=== PATIENT | male | born 1975 | race Caucasian/White ===

== ENCOUNTER 2022-03-07 16:29 | Emergency (ER) | payer OTHER ==
[~2022-03-07] VITALS: Ht 185 cm; Wt 107.0 kg
--- NOTE | 2022-03-07 16:55 | ED Upper Extremity ---
General Chief Complaint: Upper Extremity Stated Complaint: L HAND MIDDLE FINGER INJ Nursing Triage Note: pt came from work with cc of lt hand third digit getting caught in a cable with a glove on. bleeding controlled on arrival with skin tore away from the nail. Source: patient Exam Limitations: no limitations (CHANTAL PIÑA APRN) History of Present Illness Date Seen by Provider: March 07, 2022 Time Seen by Provider: 16:52 Initial Comments Crush injury of the left fingertip from a cable while at work just prior to arrival. Tetanus is not up-to-date. Onset: just prior to arrival Severity: moderate Pain/Injury Location: left 3rd finger Method of Injury: direct blow Modifying Factors: Worse With Movement (CHANTAL PIÑA APRN) Allergies and Home Medications Allergies Coded Allergies: No Known Drug Allergies (Unverified , 03/07/22) Patient Home Medication List Home Medication List Reviewed: Yes (CHANTAL PIÑA APRN) Amoxicillin/Potassium Clav (Amox Tr-K Clv 875-125 mg Tab) 875 Mg-125 Mg Tablet, 1 EACH PO BID Prescribed by: CHANTAL PIÑA on 03/07/22 1750 Review of Systems Constitutional: see HPI EENTM: see HPI Respiratory: no symptoms reported Cardiovascular: no symptoms reported Genitourinary: no symptoms reported Musculoskeletal: no symptoms reported Skin: no symptoms reported Psychiatric/Neurological: No Symptoms Reported (CHANTAL PIÑA APRN) Past Wpwmbao-Pwelat-Ndvxny Hx Patient Social History Tobacco Use?: No Substance use?: No Alcohol Use?: No (CHANTAL PIÑA APRN) Past Medical History Surgery/Hospitalization HX: gallbladder (CHANTAL PIÑA APRN) Physical Exam Vital Signs Vital Signs - First Documented 03/07/22 16:35 Temp 36.6 Pulse 90 Resp 20 B/P (MAP) 164/98 (120) Pulse Ox 95 O2 Delivery Room Air (YESENIA MEYERS MD) Vital Signs Capillary Refill : Less Than 3 Seconds (CHANTAL PIÑA APRN) Height, Weight, BMI Height: '" Weight: lbs. oz. kg; 31.00 BMI Method: General Appearance: WD/WN, no apparent distress HEENT: PERRL/EOMI, normal ENT inspection Neck: non-tender, full range of motion Respiratory: no respiratory distress, no accessory muscle use Shoulder: normal inspection, non-tender Elbow/Forearm: normal inspection, non-tender Wrist: Yes normal inspection, Yes non-tender Hand: Left, laceration (There is a complex stellate laceration to the pad of the left middle fingertip. Dorsally there is a very small subungual hematoma but the nail is intact. It is as though the pad has been pulled off anteriorly from the phalanx. This tissue has delayed capillary refill. Did a digital block using 5 mL of 1% lidocaine without epinephrine then irrigated thoroughly then loosely closed the laceration with sutures covered with antibiotic ointment then tube gauze. I will give him some antibiotic prophylaxis and pain control at home and have him follow-up with surgery.) Neurologic/Tendon: normal sensation, normal motor functions, normal tendon functions Neurologic/Psychiatric: alert, normal mood/affect, oriented x 3 Skin: normal color, warm/dry (CHANTAL PIÑA APRN) Procedures/Interventions Wound Location: Upper Extremities Wound Length (cm): 2 Wound's Depth, Shape: irregular, contused tissue, bone, sub Q Anesthesia: 1% Lidocaine Volume Anesthetic (ccs): 10 Suture: Vicryl Suture Size: 3-0 Number of Sutures: 13 Layer Closure?: 1 Number Deep Layer Sutures: 0 (CHANTAL PIÑA APRN) Progress/Results/Core Measures Results/Orders Medications Given in ED Current Medications Medications Dose Ordered Sig/Fiona Route Start Time Stop Time Status Last Admin Dose Admin Acetaminophen/ Hydrocodone Bitart 1 ea ONCE ONCE PO 03/07/22 17:00 03/07/22 17:01 DC 03/07/22 17:54 1 EA Diphtheria/ Tetanus/Acell Pertussis 0.5 ml ONCE ONCE IM 03/07/22 17:00 03/07/22 17:01 DC 03/07/22 17:55 0.5 ML (YESENIA MEYERS MD) Vital Signs/I&O 03/07/22 03/07/22 17:54 18:05 Temp 36.6 36.6 Pulse 88 Resp 20 B/P (MAP) 158/93 Pulse Ox 95 O2 Delivery Room Air (YESENIA MEYERS MD) Blood Pressure Mean: 120 Departure Communication (Admissions) NAME: STEFANY BEE [facility] REC#: [id number] PT STATUS: REG ER : 1975 PHYSICIAN: CHATNAL PIÑA APRN ADMIT DATE: 03/07/22/ER Signed Date of Exam:03/07/22 HAND, LEFT, 3 VIEWS INDICATION: Left hand injury, finger injury. FINDINGS: Three views of the left hand demonstrate slightly displaced tuft fracture of the third phalanx. Joint spaces are normal. No foreign body. IMPRESSION: Tuft fracture of the third digit. Dictated by: Dictated on workstation # [id number] Dict: 03/07/22 1705 Trans: 03/07/22 1737 [id number] Interpreted by: TALYA LOZANO Electronically signed by: TALYA LOZANO 03/07/22 1738 1740-sutured with 13 sutures, there is some duskiness to the pad of the finger tip. I will have him follow-up with surgery. He is going to return here in 48 to 72 hours for dressing change. He also will follow-up with hand surgery or orthopedics. We used Vicryl sutures so these do not have to be removed. (CHANTAL PIÑA APRN) Impression Primary Impression: Complex fingertip laceration Disposition: 01 HOME, SELF-CARE Condition: Stable Departure-Patient Inst. Decision time for Depature: 16:55 (CHANTAL PIÑA APRN) Referrals: LISSETT ELY DO SHARRI CLANCY DO MARILU MARTINEZ DO HELGA,LOCAL PHYSICIAN (PCP) Primary Care Physician BELIA YEAGER MD Patient Instructions: Laceration Repair With Stitches (DC) Add. Discharge Instructions: 1. Return here to ER within 48 to 72 hours at a time of your convenience. Tell them you are just here for a dressing change. Call a surgeon of your choosing tomorrow. A list of local surgeons and orthopedist have been listed for you call 1 tomorrow to make an appointment to be seen within the next 1 to 2 weeks. Keep this dressing clean and dry at all times. Keep either a condom over this or the finger from a glove when you shower to keep it dry. Pain medication as directed. No use of left hand. Antibiotics as directed. All discharge instructions reviewed with patient and/or family. Voiced understanding. Scripts Amoxicillin/Potassium Clav (Amox Tr-K Clv 875-125 mg Tab) 875 Mg-125 Mg Tablet 1 EACH PO BID, #14 TAB Prov: CHANTAL PIÑA APRN 03/07/22 PHYSICIAN ATTESTATION NOTE: I was present in the ER while GEAR REPAIRER / PA saw the patient, but I was not involved in the care, exam, or management of the patient. (YESENIA MEYERS MD) CHANTAL PIÑA APRN March 07, 2022 16:55 YESENIA MEYERS MD March 08, 2022 04:39
[2022-03-07] MEDS ORDERED: HYDROcodone/APAP 5 MG/325 MG (LORTAB) TAB PO ONE (17:00)
[2022-03-07] MEDS ORDERED: CEPHALEXIN 250 MG (KEFLEX) CAP PO SCH (17:00)
[2022-03-07] MEDS ORDERED: TETANUS,DIPTH,PERTUSS P/F (BOOSTRIX) 0.5 ML VIAL IM ONE (17:00)
--- NOTE | 2022-03-07 17:09 | Diagnostic Imaging Report ---
INDICATION: Left hand injury, finger injury. FINDINGS: Three views of the left hand demonstrate slightly displaced tuft fracture of the third phalanx. Joint spaces are normal. No foreign body. IMPRESSION: Tuft fracture of the third digit. Dictated by: Dictated on workstation # [id number]
[2022-03-07] MEDS ORDERED: AMOX1TAB12 PO (17:50)
[2022-03-07 18:05] VITALS: BP 158/93
== END 2022-03-07 18:05 | disposition home or self-care (01) ==
LOC: ER 16:32
DX: S62.603A Fracture of unspecified phalanx of left middle finger, initial encounter for closed fracture (principal); S61.213A Laceration without foreign body of left middle finger without damage to nail, initial encounter; W23.0XXA Caught, crushed, jammed, or pinched between moving objects, initial encounter; Y92.59 Other trade areas as the place of occurrence of the external cause; Y99.0 Civilian activity done for income or pay
CPT/HCPCS: 12013; 64450; 73130; 90715

== ENCOUNTER 2022-03-08 17:47 | Emergency (ER) | payer OTHER ==
[~2022-03-08] VITALS: Ht 185 cm; Wt 107.0 kg
[~2022-03-08 17:47] MED LIST: AMOX1TAB12 PO
[2022-03-08 18:15] VITALS: BP 150/112
== END 2022-03-08 18:20 | disposition home or self-care (01) ==
LOC: EDUNIT# 17:47 → ER 17:51
DX: Z48.00 Encounter for change or removal of nonsurgical wound dressing (principal)
CPT/HCPCS: 99281

== ENCOUNTER 2022-03-09 16:35 | Emergency (ER) | payer OTHER ==
[~2022-03-09] VITALS: Ht 182.9 cm; Wt 106.6 kg
[2022-03-09 16:45] VITALS: BP 144/94
--- NOTE | 2022-03-09 17:46 | ED Suture Removal/Wound Check ---
Suture/Wound Re-check Suture Removal/Wound Recheck : Suture Removal/Wound Recheck: Dry/sterile dressing-appl Progress Dressing removed. He has significant swelling to his left 3rd finger, has white discoloration around medial and lateral nail borders. The tip of the finger is somewhat dusky. He does have good cap refill at the most distal tip. Delayed cap refill on volar finger pad surface. Sutures are intact. No purulent drainage. Cleansed area with Chlorhexadine wash and saline. Tolerated well. Applied dry guaze dressing with Kerlix. States his spouse had covered his finger in triple antibiotic ointment and covered to help prevent infection. Discussed not using triple antibiotic ointment as this can delay wound healing. Reviewed cleansing finger with soap and water, patting dry, and avoiding soaking finger or allowing wet dressing to stay in place. He is to apply dry dressings and may keep open to air 30-40 minutes at a time at home. He his to continue his antibiotics as previously prescribed. Verbalized understanding. Encouraged to keep his hand elevated above his heart as much as possible to reduce swelling. Repeated discharge instructions back to me prior to discharge. General Appearance: WD/WN, no apparent distress Skin Exam: normal color, warm/dry Physical Exam Vital Signs Vital Signs - First Documented 03/09/22 16:45 Temp 36.4 Pulse 67 Resp 16 B/P (MAP) 144/94 Pulse Ox 97 O2 Delivery Room Air Capillary Refill : General Appearance: WD/WN, no apparent distress Skin: other (see progress note ) Departure Impression Primary Impression: Encounter for wound re-check Disposition: 01 HOME, SELF-CARE Condition: Improved Departure-Patient Inst. Decision time for Depature: 17:46 Referrals: NO,LOCAL PHYSICIAN (PCP/Family) Primary Care Physician Patient Instructions: Wound Care (COURTNEY) KAI DUBON INFORMATION SYSTEMS ADMINISTRATOR March 09, 2022 17:46
== END 2022-03-09 17:48 | disposition home or self-care (01) ==
LOC: EDUNIT# 16:35 → ER 16:38
DX: Z48.00 Encounter for change or removal of nonsurgical wound dressing (principal)